=== PATIENT | female | born 1975 | race African-American/Black ===

== ENCOUNTER 2017-08-27 10:37 | Emergency (ER) | payer MEDICAID, OTHER, SELFPAY ==
[2017-08-27] MEDS ORDERED: HYDROcodone/Acetaminophen 10/325 mg Tablet ONE (11:19)
[2017-08-27] MEDS ORDERED: Lidocaine 1% 20 ML MDV ONE (11:25)
[2017-08-27] MEDS ORDERED: cefTRIAXone\\ROCEPHIN 1 GM VIAL ONE (11:25)
== END 2017-08-27 11:34 | disposition home or self-care (01) ==
LOC: BURERS 10:37
DX: K04.7 Periapical abscess without sinus (principal); K02.9 Dental caries, unspecified; F17.210 Nicotine dependence, cigarettes, uncomplicated
CPT/HCPCS: 96372; J0696; J2001

== ENCOUNTER 2018-10-01 14:23 | Emergency (ER) | payer SELFPAY ==
[2018-10-01] MEDS ORDERED: ALPRAZolam 0.5 MG TAB ONE (14:33)
== END 2018-10-01 16:00 | disposition home or self-care (01) ==
LOC: BURERS 14:23
DX: F41.1 Generalized anxiety disorder (principal); J45.909 Unspecified asthma, uncomplicated; F17.210 Nicotine dependence, cigarettes, uncomplicated; Z79.899 Other long term (current) drug therapy
CPT/HCPCS: 99283